=== PATIENT | female | born 1950 | race Caucasian/White ===

== ENCOUNTER 2018-05-05 21:27 | Emergency (ER) | payer MEDICARE, BC ==
--- OUTSIDE RECORDS SUMMARY | 2018-05-05 21:37 | XMS REPORT | Continuity of Care Document ---
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 Payers Type Date Identification Numbers Payment Provider Subscriber Policy Number: [id number] [employer] [place] PayID: [id number] [address] [place] [address] Effective: 2014 Policy Number: [employer] Nishant Marlow [id number] [facility] PayID: [id number] [address] [address] [place] [address] Onset: 2018 Policy Number: [id number] [employer] Marlow PayID: [id number] [address] [place] [address] Advance Directives Description No Information Available Problems Date Description Provider Status Onset: 09/14/2012 Anxiety state Douglas Comer MD Active Onset: 09/14/2012 Disorder of thyroid gland Douglas Comer MD Active Onset: 09/14/2012 Mixed hyperlipidemia Douglas Comer MD Active Onset: 09/14/2012 Vitamin D deficiency Douglas Comer MD Active Onset: 09/14/2012 Gastroesophageal reflux disease Douglas Comer MD Active Onset: 12/17/2012 Hypothyroidism Douglas Comer MD Active Onset: Cystocele Gabo Mcclain MD Active Onset: 03/25/2018 Derangement of meniscus of right knee Amanda Latham PA- C Active joint Family History Date Family Member(s) Problem(s) Comments Father Diabetes : (2007) Father due to Cerebrovascular Accident Father Heart Disease Father Atrial Fibrillation Father Cataracts Mother Hypertension Mother Cataracts Mother Anxiety Onset: (2012) Mother Aortic Aneursym Children 3 First Son Hypertension Second Son Unremarkable First Daughter Unremarkable Siblings 7 First Brother Sarcoidosis Second Brother Heart Murmur Second Brother Arthritis First Sister Diverticulitis First Sister Polyps sinus Second Sister Polyps colon Third Sister Gallstones Fourth Sister spinal meningitis Fifth Sister Hepatitis Paternal Grandfather due to mesenteric () thrombosis Paternal Grandfather Prostate Cancer Paternal Grandmother Congestive Heart Failure (CHF) Paternal Grandmother due to Congestive Heart () Failure Paternal Grandmother Hypertension Paternal Grandmother Cataracts Paternal Grandmother Gallstones Maternal Grandfather Tuberculosis Maternal Grandfather due to TB () Maternal Grandmother due to Cerebrovascular () Accident Maternal Grandmother Heart Disease Maternal Grandmother Cerebrovascular Accident (CVA) Social History Type Date Description Comments Sex Unknown Marital Status Legal Status: Lives With Spouse Diet Healthy, Well Balanced Sleep Reports normal sleep activity Sleep Typically sleeps 7 hours a night Smoke-Free Home is smoke-free Pets None 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 Employment Tobacco Use Start: Unknown End: Former Cigarette quit 05/2012 Unknown Smoker ETOH Use Rarely consumes wine Tobacco Use Start: Unknown End: Patient is a former 1/4 pack x 30+ years Unknown smoker Recreational Drug Use Denies Drug Use Smoking Status Reviewed: 04/18/18 Patient is a former 1/4 pack x 30+ years smoker Exercise Type/Frequency Exercises regularly yoga 1 x/week Smoke Alarms Yes Smoke Alarms Carbon Monoxide Detector: Yes Allergies, Adverse Reactions, Alerts Date Description Reaction Status Severity Comments 09/14/2012 Demerol Nausea and Vomiting Active 09/14/2012 Percocet Nausea and Vomiting Active 09/14/2012 Darvocet Nausea and Vomiting Active 09/14/2012 CT Contrast Medium Urticaria Active pt denies shellfish allergy Medications Medication Date Status Form Strength Qnty SIG Indications Ordering Provider Ibuprofen 12/20 Active Tablets 600mg 90tab Take 1 M25.562 s tablet, 3 o,Peter times a dayDimitri MD as needed for pain. Take with food T.E.D. 04/02 Active Misc 2unit bilateral, R60.0 Anti-Embolism s please Douglas burns Knee measure for MD Dimitri Length appropriate sizing Protonix 10/[address] 40mg 90tab 1 by mouth K21.9 s every day Douglas burns MD Vitamin D 07/01 Active Capsules 1000Unit 1 po qd Douglas burns MD Singulair 03/28 Active Tablets 10mg 90tab 1 tab by T78.49xA s mouth every Douglas burns night at MD Dimitri bedtime Levothyroxine Active Tablets 88mcg 90tab 1 by mouth E03.9 Sodium s every day Douglas burns MD Lipitor Active Tablets 10mg 90tab 1 by mouth E78.2 s every night Douglas burns at bedtime MD Dimitri Xanax Active Tablets 0.25mg 30tab 1 by mouth s every day Douglas burns and bulmaro Mosley MD needed anxiety Aspirin Ec Active Tablets DR 81mg OTC 1 po qd Nasonex Active Suspension 50mcg/Act 1unit 2 sp each s nostril Douglas burns every day MD Dimitri Pepcid ac Active Tablets 10mg prn GERD flare up Shingrix 02/02 Hx Suspension 50mcg .5ml give 0.5ml Rec sq once to Douglas burns - deidre given at MD Dimitri 04/18 pharmacy, 2nd dose repeat as indicated Bactrim DS 08/21 Hx Tablets 800-160mg 20tab 1 by mouth J01.80 s twice a day ,Ryan Mota x 10 liam Leal MD 08/29 Cefdinir 03/28 Hx Capsules 300mg 20cap 2 by mouth R05 s every day x Douglas burns - 10d MD Dimitri 04/07 Azithromycin 03/23 Hx Tablets 250mg 6tabs 2 by mouth day 1, then Douglas burns - 1 by mouth MD Dimitri 03/28 everyday 2-5 Cefdinir 07/10 Hx Capsules 300mg 20cap 2 by mouth J01.80 s every day x oDouglas MD 07/20 Cefdinir 03/14 Hx Capsules 300mg 20cap 2 by mouth s every day x o,Douglas Mosley MD 07/10 Azithromycin 03/12 Hx Tablets 500mg 5tabs 1 by mouth H66.91 Matty every day x Justin - 5 days MD Elvis 03/14 Tessalon Perles 03/12 Hx Capsules 100mg 15cap 1 by mouth Matty s three times Justin - a day MD Elvis 07/10 Augmentin 03/10 Hx Tablets 875-125mg 20tab one by mouth 682.2 Jose s twice a day oDouglas - x 10 days MD Dimitri 03/12 H66.91 Cefdinir 01/19/2016 - Hx Capsules 300mg 20caps 1 by mouth J01.00 Cresencio Hodgson 01/29/2016 twice a A, day x 10d with food Cipro 10/13/2015 - Hx Tablets 500mg 20tabs 1 by mouth R35.0 Jaki Sandra 10/23/2015 twice a seph MD Elvis day x 10 days Gentamicin 11/24/2014 - Hx Solution 0.3% 5ml 1 drop 372.00 Picciano,Ama Sulfate 06/05/2015 left eye fritz Mosley MD three times a day for 5 days 373.12 Cipro 11/24/2014 - Hx Tablets 500mg 10tabs 1 by mouth 599.0 Anupcolla, 04/02/2015 twice a day Justin Leal, x 5 days MD Hickman HFPeggy 09/21/2014 - Hx Aerosol 108(90B 1units 1-2 puffs Fiacco, 01/19/2016 ase) q4-6 as Cresencio Woods MD mcg/Act needed wheezing/sob Cefdinir 03/11/2014 - Hx Capsules 300mg 20caps 2 by mouth 461.8 Fiacco, 03/21/2014 every day x Cresencio Woods MD 10d Augmentin 01/01/2014 - Hx Tablets 875-125 20tabs one by mouth 682.2 Dimitri Sandra 01/11/2014 mg twice a day oseph MD Elvis x 10 days Prednisone 09/23/2013 - Hx Tablets 20mg 3tabs 1 take 1 tab Souleymane, 04/18/2018 13 hours Douglas Mosley MD prior to procedure, 1 tab 7 hours prior to procedure, and 1 tab 1 hour prior to procedure Tamiflu 07/07/2013 - Hx Capsules 75mg 10caps 1 po qd x 10 Fiacco, 07/17/2013 days Cresencio Woods MD Levofloxacin 03/24/2013 - Hx Tablets 250mg 10tabs 1 po qd x 10 466.0 Mincolla, 04/03/2013 days Justin Leal MD Augmentin 03/15/2013 - Hx Tablets 875-125 14tabs one po bid x 682.2 Fiacco, 2013 mg 7 days Cresencio Woods MD Gentamicin 10/29/2012 - Hx Solution 0.3% 5ml 1 gtt OS tid 372.00 Picciano,Mi Sulfate 11/03/2012 for 5 days chloé Mosley MD Cefdinir 09/12/2012 - Hx Capsules 300mg 20caps 2 po qd x Unknown 09/22/2012 10d Nexium - Hx Capsules 40mg 30caps 1 by mouth 530.81 Souleymane, 10/14/2014 DR every day Douglas Mosley MD Vitamin D3 Super - Hx Tablets 2000Uni 1 po qd Unknown Strength 07/01/2013 t Estradiol - Hx Tablets 0.5mg 30tabs 1/2 po qd Contente, 01/22/2014 MD Gabo Sulfacetamide - Hx Ointment 10% use qam as Unknown Sodium 09/21/2014 directed Metronidazole - Hx Gel 0.75% 45gm apply Unknown 09/21/2014 sparingly to face qhs Econazole - Hx Cream 1% apply daily Tangoren, Nitrate 10/23/2017 to face as I.A., indicated MD-not accepting new pt Hydrocortisone - Hx Cream 0.2% apply to Tangoren, Valerate 10/23/2017 face daily I.A., as MD-not prescribed accepting new pt Medications Administered in Office Medication Date Status Form Strength Qnty SIG Indications Ordering Provider Toradol, 60 MG Administered Injection Sarah Ritchie RNNP Rocepsuzanna 1GM Administered Injection Sarah Ritchie RNNP Immunizations CPT Code Status Date Vaccine Lot # [id number] Given 04/05/2018 Flu,High Dose For (Ages 65 and older) 79995 Given 05/04/2017 Flu,High Dose For (Ages 65 and older) [id number] 33548 Given 04/06/2016 Flu, Multi-Dose Vial W/Preservative (Age 3 Yrs And Older)Quad 0.5 82006 Given 04/02/2015 Adacel - Tdap [facility] [id number] 06/27 cc 09827 Given 04/02/2015 Adacel - Tdap [facility] [id number] 06/27 cc [id number] 93072 Given 04/02/2015 Flu,High Dose For (Ages 65 and older) 65934 Given 04/02/2015 Flu,High Dose For (Ages 65 and older) [id number] 34016 Given 05/01/2014 Pneumococcal Vaccine - Prevnar 13 [id number] 41811 Given 04/25/2014 Flu, Multi-Dose Vial W/Preservative (Age 3 Yrs And Older)Quad 0.5 77731 Given 03/28/2013 Flu Shot 3 Yrs And Above (Multi Dose Vial) [id number] 34518 Given 09/14/2012 Zostavax 18364 Given 09/14/2012 Pneumococcal 23 Vaccine Vital Signs Date Vital Result Comment 04/18/2018 9:10am BP Systolic 120 mmHg BP Diastolic 70 mmHg Heart Rate 80 /min Body Temperature 99.1 F Respiratory Rate 18 /min Weight 195.00 lb Weight 88.452 kg Height 65.25 inches 5'5.25" BMI (Body Mass Index) 32.2 kg/m2 03/19/2018 12:19pm BP Systolic 132 mmHg BP Diastolic 80 mmHg Heart Rate 84 /min Body Temperature 98.2 F Respiratory Rate 16 /min Weight 195.00 lb Weight 88.452 kg Height 65.25 inches 5'5.25" BMI (Body Mass Index) 32.2 kg/m2 02/02/2018 8:18am BP Systolic 126 mmHg BP Diastolic 74 mmHg Heart Rate 64 /min Body Temperature 98.6 F Respiratory Rate 16 /min Weight 197.00 lb Weight 89.359 kg Height 65.25 inches 5'5.25" BMI (Body Mass Index) 32.5 kg/m2 10/23/2017 11:05am BP Systolic 130 mmHg BP Diastolic 88 mmHg Heart Rate 66 /min Body Temperature 98.1 F Respiratory Rate 12 /min Weight 202.12 lb Weight 91.684 kg Height 65.25 inches 5'5.25" BMI (Body Mass Index) 33.4 kg/m2 08/21/2017 3:21pm BP Systolic 120 mmHg BP Diastolic 80 mmHg Heart Rate 70 /min Body Temperature 98.6 F Respiratory Rate 16 /min Weight 201.00 lb Weight 91.174 kg Height 65.25 inches 5'5.25" BMI (Body Mass Index) 33.2 kg/m2 05/04/2017 10:12am BP Systolic 120 mmHg BP Diastolic 80 mmHg Heart Rate 74 /min Body Temperature 98.5 F Respiratory Rate 20 /min Weight 195.00 lb Weight 88.452 kg Height 65.25 inches 5'5.25" BMI (Body Mass Index) 32.2 kg/m2 03/28/2017 9:15am BP Systolic 122 mmHg BP Diastolic 80 mmHg Heart Rate 68 /min Body Temperature 99.2 F Respiratory Rate 16 /min Weight 197.00 lb Weight 89.359 kg Height 65.25 inches 5'5.25" BMI (Body Mass Index) 32.5 kg/m2 03/23/2017 11:26am BP Systolic 120 mmHg BP Diastolic 82 mmHg Heart Rate 66 /min Body Temperature 99.1 F Respiratory Rate 12 /min Weight 193.50 lb Weight 87.772 kg Height 65.25 inches 5'5.25" BMI (Body Mass Index) 32.0 kg/m2 12/20/2016 1:50pm BP Systolic 126 mmHg BP Diastolic 80 mmHg Heart Rate 76 /min Body Temperature 98.3 F Weight 198.00 lb Weight 89.813 kg Height 65.25 inches 5'5.25" BMI (Body Mass Index) 32.7 kg/m2 11/04/2016 8:35am BP Systolic 130 mmHg BP Diastolic 78 mmHg Heart Rate 74 /min Body Temperature 97.8 F Respiratory Rate 20 /min Weight 194.00 lb Weight 87.998 kg Height 65.25 inches 5'5.25" BMI (Body Mass Index) 32.0 kg/m2 07/25/2016 8:18am BP Systolic 130 mmHg BP Diastolic 80 mmHg Heart Rate 72 /min Body Temperature 98.4 F Respiratory Rate 16 /min Weight 192.00 lb Weight 87.091 kg Height 65.25 inches 5'5.25" BMI (Body Mass Index) 31.7 kg/m2 07/10/2016 12:46pm BP Systolic 128 mmHg BP Diastolic 78 mmHg Heart Rate 80 /min Body Temperature 98.9 F Respiratory Rate 12 /min Weight 189.00 lb Weight 85.730 kg Height 65.25 inches 5'5.25" BMI (Body Mass Index) 31.2 kg/m2 03/14/2016 9:38am BP Systolic 112 mmHg BP Diastolic 70 mmHg Heart Rate 76 /min Body Temperature 98.2 F Respiratory Rate 16 /min Weight 187.00 lb Weight 84.823 kg Height 65.25 inches 5'5.25" BMI (Body Mass Index) 30.9 kg/m2 03/10/2016 3:08pm BP Systolic 126 mmHg BP Diastolic 84 mmHg Heart Rate 68 /min Body Temperature 98.1 F Respiratory Rate 12 /min Weight 191.00 lb Weight 86.638 kg Height 65.25 inches 5'5.25" BMI (Body Mass Index) 31.5 kg/m2 02/15/2016 11:18am BP Systolic 138 mmHg BP Diastolic 80 mmHg BP Systolic Recheck 118 mmHg BP Diastolic Recheck 78 mmHg Heart Rate 74 /min Body Temperature 98.1 F Respiratory Rate 20 /min Weight 193.00 lb Weight 87.545 kg Height 65.25 inches 5'5.25" BMI (Body Mass Index) 31.9 kg/m2 01/19/2016 1:08pm BP Systolic 122 mmHg BP Diastolic 80 mmHg Heart Rate 68 /min Body Temperature 98.9 F Respiratory Rate 16 /min Weight 193.00 lb Weight 87.545 kg Height 65.25 inches 5'5.25" BMI (Body Mass Index) 31.9 kg/m2 10/13/2015 10:58am BP Systolic 120 mmHg BP Diastolic 78 mmHg Heart Rate 80 /min Body Temperature 98.2 F Respiratory Rate 18 /min Weight 198.00 lb Weight 89.813 kg Height 65.25 inches 5'5.25" BMI (Body Mass Index) 32.7 kg/m2 10/01/2015 10:48am BP Systolic 128 mmHg BP Diastolic 82 mmHg Heart Rate 68 /min Body Temperature 98.3 F Respiratory Rate 14 /min Weight 195.00 lb Weight 88.452 kg Height 65.25 inches 5'5.25" BMI (Body Mass Index) 32.2 kg/m2 06/05/2015 9:04am BP Systolic 114 mmHg BP Diastolic 68 mmHg Heart Rate 76 /min Body Temperature 98.0 F Respiratory Rate 12 /min Weight 193.00 lb Weight 87.545 kg Height 65.25 inches 5'5.25" BMI (Body Mass Index) 31.9 kg/m2 04/02/2015 9:33am BP Systolic 122 mmHg BP Diastolic 78 mmHg Heart Rate 64 /min Respiratory Rate 14 /min Weight 193.00 lb Weight 87.545 kg Height 65.25 inches 5'5.25" BMI (Body Mass Index) 31.9 kg/m2 11/24/2014 9:04pm BP Systolic 118 mmHg BP Diastolic 76 mmHg Heart Rate 72 /min Body Temperature 98.2 F Respiratory Rate 16 /min Weight 191.00 lb Weight 86.638 kg Height 65.25 inches 5'5.25" BMI (Body Mass Index) 31.5 kg/m2 11/06/2014 7:26am BP Systolic 122 mmHg BP Diastolic 72 mmHg Heart Rate 80 /min Body Temperature 98.0 F Weight 191.00 lb Weight 86.638 kg Height 65.25 inches 5'5.25" BMI (Body Mass Index) 31.5 kg/m2 09/30/2014 2:16pm BP Systolic 120 mmHg BP Diastolic 78 mmHg Heart Rate 80 /min Body Temperature 98.5 F Respiratory Rate 12 /min Weight 187.00 lb Weight 84.823 kg Height 65.25 inches 5'5.25" BMI (Body Mass Index) 30.9 kg/m2 09/21/2014 11:39am BP Systolic 120 mmHg BP Diastolic 70 mmHg Heart Rate 75 /min Body Temperature 97.8 F Respiratory Rate 16 /min Weight 187.00 lb Weight 84.823 kg Height 65.25 inches 5'5.25" BMI (Body Mass Index) 30.9 kg/m2 05/01/2014 8:03am BP Systolic 90 mmHg BP Diastolic 70 mmHg Heart Rate 64 /min Body Temperature 98.5 F Respiratory Rate 14 /min Weight 184.00 lb Weight 83.462 kg Height 65.25 inches 5'5.25" BMI (Body Mass Index) 30.4 kg/m2 03/11/2014 3:47pm BP Systolic 122 mmHg BP Diastolic 70 mmHg Heart Rate 72 /min Body Temperature 98.5 F Respiratory Rate 16 /min Weight 182.00 lb Weight 82.555 kg Height 65.25 inches 5'5.25" BMI (Body Mass Index) 30.1 kg/m2 01/22/2014 2:49pm BP Systolic 120 mmHg BP Diastolic 82 mmHg Heart Rate 68 /min Body Temperature 98.0 F Respiratory Rate 12 /min Weight 181.00 lb Weight 82.102 kg Height 65.25 inches 5'5.25" BMI (Body Mass Index) 29.9 kg/m2 01/01/2014 7:08pm BP Systolic 120 mmHg BP Diastolic 66 mmHg Heart Rate 72 /min Body Temperature 98.0 F Respiratory Rate 14 /min Weight 183.00 lb Weight 83.009 kg Height 65.25 inches 5'5.25" BMI (Body Mass Index) 30.2 kg/m2 10/03/2013 7:47am BP Systolic 120 mmHg BP Diastolic 80 mmHg Heart Rate 76 /min Body Temperature 98.0 F Respiratory Rate 14 /min Weight 196.00 lb Weight 88.906 kg Height 65.25 inches 5'5.25" BMI (Body Mass Index) 32.4 kg/m2 09/23/2013 4:13pm BP Systolic 112 mmHg BP Diastolic 80 mmHg Heart Rate 64 /min Body Temperature 98.5 F Respiratory Rate 14 /min Weight 198.00 lb Weight 89.813 kg Height 65.25 inches 5'5.25" BMI (Body Mass Index) 32.7 kg/m2 07/01/2013 8:13am BP Systolic 126 mmHg BP Diastolic 84 mmHg Heart Rate 72 /min Body Temperature 98.2 F Respiratory Rate 16 /min Weight 194.00 lb Weight 87.998 kg Height 65.25 inches 5'5.25" BMI (Body Mass Index) 32.0 kg/m2 03/28/2013 9:23am BP Systolic 112 mmHg BP Diastolic 74 mmHg Heart Rate 68 /min Body Temperature 98.4 F Respiratory Rate 16 /min Weight 183.00 lb Weight 83.009 kg Height 65.25 inches 5'5.25" BMI (Body Mass Index) 30.2 kg/m2 03/24/2013 11:54am BP Systolic 102 mmHg BP Diastolic 68 mmHg Heart Rate 84 /min Body Temperature 98.1 F Respiratory Rate 16 /min Weight 183.00 lb Weight 83.009 kg Height 65.25 inches 5'5.25" BMI (Body Mass Index) 30.2 kg/m2 03/16/2013 1:18pm BP Systolic 116 mmHg BP Diastolic 76 mmHg Heart Rate 62 /min Body Temperature 98.2 F Respiratory Rate 14 /min Weight 186.00 lb Weight 84.370 kg Height 65.25 inches 5'5.25" BMI (Body Mass Index) 30.7 kg/m2 03/15/2013 4:14pm BP Systolic 120 mmHg BP Diastolic 80 mmHg Body Temperature 99.1 F Weight 188.00 lb Weight 85.277 kg Height 65.25 inches 5'5.25" BMI (Body Mass Index) 31.0 kg/m2 12/17/2012 8:19am BP Systolic 118 mmHg BP Diastolic 78 mmHg Heart Rate 70 /min Body Temperature 98.3 F Respiratory Rate 12 /min Weight 186.00 lb Weight 84.370 kg Height 65.25 inches 5'5.25" BMI (Body Mass Index) 30.7 kg/m2 11/07/2012 10:53am BP Systolic 124 mmHg BP Diastolic 82 mmHg Heart Rate 64 /min Body Temperature 98.5 F Respiratory Rate 12 /min Weight 188.00 lb Weight 85.277 kg Height 65.25 inches 5'5.25" BMI (Body Mass Index) 31.0 kg/m2 10/29/2012 4:11pm BP Systolic 110 mmHg BP Diastolic 64 mmHg Heart Rate 82 /min Body Temperature 98.3 F Respiratory Rate 14 /min Weight 180.00 lb Weight 81.648 kg Height 65.25 inches 5'5.25" BMI (Body Mass Index) 29.7 kg/m2 09/14/2012 10:21am BP Systolic 142 mmHg BP Diastolic 88 mmHg Heart Rate 68 /min Body Temperature 98.5 F Respiratory Rate 14 /min Weight 187.00 lb Weight 84.823 kg Height 65.25 inches 5'5.25" BMI (Body Mass Index) 30.9 kg/m2 Results Test Date Facility Test Result H/L Range Note CBC/Automated 02/02/2018 [facility] WBC 3.73 k/uL Low 4.60-10.20 1 Differential Yogi 1.93 Low 2.00-7.50 %N 51.9 % 37.0-80.0 Lym 1.33 K/UL 1.20-4.80 %L 35.6 % 10.0-50.0 Sac 0.295 0.000-0.900 %M 7.91 % 0.00-12.00 Eos 0.124 0.000-0.700 %E 3.32 % 0.00-7.00 Baso 0.050 0.000-0.200 %B 1.34 % 0.00-4.00 RBC 4.64 m/uL 4.04-6.13 Hemoglobin 13.7 g/dL 12.2-18.1 Hematocrit 41.3 % 37.7-47.0 MCV 89.1 fl 80.0-97.0 MCH 29.5 pg 27.0-31.2 MCHC 33.1 g/dL 31.8-35.4 RDW 12.3 % 11.6-14.8 PLT 313 K/uL 142-424 MPV 7.1 fL 0.0-99.9 Comprehensive 02/02/2018 [facility] Glucose 101.00 mg/dL 70.00- 110.00 Metabolic Panel Urea Nitrogen 18 mg/dL 8-21 CreaC 1.0 mg/dL 0.6-1.1 GFR 55.87 mL/min 2 Na-C 139 mmol/L 136-145 K-C 5.0 mmol/L 3.5-5.1 Cl-C 105 mmol/L 98-107 Total Protein 6.8 g/dL 6.4-8.3 Alb P 3.90 g/dL 3.30-5.00 Alanine Aminotransferase 21 U/L 0-55 Aspartate Aminotransferase 16 U/L 5-34 Alkaline Phosphatase 85 U/L 40-150 Carbon Dioxide 26.00 mmol/L 22.00-31.00 BUN/CR 17.31 10.00-20.00 A/G 2.34 1.46-2.46 Osmo 290.04 275.00-295.00 CaC 9.80 mg/dL 8.90-10.40 Total Bilirubin 0.6 mg/dL 0.2-1.2 Glob 2 2.90 2.30-4.20 Lipid Panel(New) 02/02/2018 [facility] Cholesterol 167 mg/dL 112- 200 3 Triglyceride 120 mg/dL 1-200 4 HDL 51 mg/dL 30-85 5 Chol/HDL 3.27 Low 4.00-6.70 NHDL 116.00 mg/dL High 0.00-100.00 6 LDL-C 92.00 mg/dL 20.00-130.00 7 Laboratory test finding 10/23/2017 [facility] TSH 0.727 uIU/mL 0.350-4.940 CBC/Automated 10/23/2017 [facility] WBC 3.63 k/uL Low 4.60-10.20 Differential Yogi 1.84 Low 2.00-7.50 %N 50.6 % 37.0-80.0 Lym 1.36 K/UL 1.20-4.80 %L 37.5 % 10.0-50.0 Sac 0.290 0.000-0.900 %M 7.99 % 0.00-12.00 Eos 0.092 0.000-0.700 %E 2.53 % 0.00-7.00 Baso 0.050 0.000-0.200 %B 1.39 % 0.00-4.00 RBC 4.63 m/uL 4.04-6.13 Hemoglobin 13.4 g/dL 12.2-18.1 Hematocrit 41.3 % 37.7-47.0 MCV 89.3 fl 80.0-97.0 MCH 29.0 pg 27.0-31.2 MCHC 32.5 g/dL 31.8-35.4 RDW 11.6 % 11.6-14.8 PLT 301 K/uL 142-424 MPV 6.4 fL 0.0-99.9 Comprehensive 10/23/2017 [facility] Glucose 91.00 mg/dL 70.00- 110.00 Metabolic Panel Urea Nitrogen 18 mg/dL 8-21 CreaC 1.0 mg/dL 0.6-1.1 GFR 57.83 mL/min 8 Na-C 139 mmol/L 136-145 K-C 4.6 mmol/L 3.5-5.1 Cl-C 105 mmol/L 98-107 Total Protein 6.9 g/dL 6.4-8.3 Alb P 3.80 g/dL 3.30-5.00 Alanine Aminotransferase 22 U/L 0-55 Aspartate Aminotransferase 18 U/L 5-34 Alkaline Phosphatase 82 U/L 40-150 Carbon Dioxide 26.00 mmol/L 22.00-31.00 BUN/CR 17.82 10.00-20.00 A/G 2.23 1.46-2.46 Osmo 289.48 275.00-295.00 CaC 9.40 mg/dL 8.90-10.40 Total Bilirubin 0.6 mg/dL 0.2-1.2 Glob 2 3.10 2.30-4.20 Lipid Panel(New) 10/23/2017 [facility] Cholesterol 172 mg/dL 112- 200 9 Triglyceride 111 mg/dL 1-200 10 HDL 53 mg/dL 30-85 11 Chol/HDL 3.25 Low 4.00-6.70 NHDL 119.00 mg/dL High 0.00-100.00 12 LDL-C 96.80 mg/dL 20.00-130.00 13 CBC/Automated Differential 05/04/2017 [facility] WBC 3.93 k/uL Low 4.60-10.20 Yogi 2.15 2.00-7.50 %N 54.7 % 37.0-80.0 Lym 1.41 K/UL 1.20-4.80 %L 35.8 % 10.0-50.0 Sac 0.236 0.000-0.900 %M 6.02 % 0.00-12.00 Eos 0.089 0.000-0.700 %E 2.27 % 0.00-7.00 Baso 0.046 0.000-0.200 %B 1.18 % 0.00-4.00 RBC 4.79 m/uL 4.04-6.13 Hemoglobin 14.7 g/dL 12.2-18.1 Hematocrit 45.0 % 37.7-47.0 MCV 93.8 fl 80.0-97.0 MCH 30.8 pg 27.0-31.2 MCHC 32.8 g/dL 31.8-35.4 RDW 12.1 % 11.6-14.8 PLT 319 K/uL 142-424 MPV 6.5 fL 0.0-99.9 Comprehensive 05/04/2017 [facility] Glucose 95.00 mg/dL 70.00- 110.00 Metabolic Panel Urea Nitrogen 17 mg/dL 8-21 CreaC 1.0 mg/dL 0.6-1.1 GFR 61.41 mL/min 14 Na-C 139 mmol/L 136-145 K-C 4.8 mmol/L 3.5-5.1 Cl-C 103 mmol/L 98-107 Total Protein 7.2 g/dL 6.4-8.3 Alb P 3.70 g/dL 3.30-5.00 Alanine Aminotransferase 21 U/L 0-55 Aspartate Aminotransferase 19 U/L 5-34 Alkaline Phosphatase 99 U/L 40-150 Carbon Dioxide 29.00 mmol/L 22.00-31.00 BUN/CR 17.71 10.00-20.00 A/G 2.06 1.46-2.46 Osmo 289.35 275.00-295.00 CaC 9.80 mg/dL 8.90-10.40 Total Bilirubin 0.5 mg/dL 0.2-1.2 Glob 2 3.50 2.30-4.20 Lipid Panel(New) 05/04/2017 [facility] Cholesterol 182 mg/dL 112- 200 15 Triglyceride 137 mg/dL 1-200 16 HDL 55 mg/dL 30-85 17 Chol/HDL 3.31 Low 4.00-6.70 NHDL 127.00 mg/dL High 0.00-100.00 18 LDL-C 99.60 mg/dL 20.00-130.00 19 Laboratory test finding 05/04/2017 [facility] TSH 1.282 uIU/mL 0.350-4.940 VitD-hydroxy 49 ng/ml 30-100 Order 03/23/2017 [facility] Oximetry [address] [place], [place] [id number] [phone] Comprehensive 11/04/2016 [facility] Glucose 93.00 70.00-1 20 Metabolic Panel mg/dL 10.00 Urea Nitrogen 17 mg/dL 8-21 CreaC 1.0 mg/dL 0.6-1.1 GFR 56.70 mL/min 21 Na-C 138 mmol/L 136-145 K-C 4.7 mmol/L 3.5-5.1 Cl-C 104 mmol/L 98-107 Total Protein 7.2 g/dL 6.4-8.3 Alb P 3.80 g/dL 3.30-5.00 Alanine Aminotransferase 32 U/L 0-55 Aspartate Aminotransferase 26 U/L 5-34 Alkaline Phosphatase 81 U/L 40-150 Carbon Dioxide 26.00 mmol/L 22.00-31.00 BUN/CR 16.50 10.00-20.00 A/G 2.12 1.46-2.46 Osmo 287.24 275.00-295.00 CaC 9.60 mg/dL 8.90-10.40 Total Bilirubin 0.5 mg/dL 0.2-1.2 Glob 2 3.40 2.30-4.20 Lipid Panel(New) 11/04/2016 [facility] Cholesterol 188 mg/dL 112- 200 22 Triglyceride 128 mg/dL 1-200 23 HDL 57 mg/dL 30-85 24 Chol/HDL 3.30 Low 4.00-6.70 NHDL 131.00 mg/dL High 0.00-100.00 25 LDL-C 105.40 mg/dL 20.00-130.00 26 CBC/Automated Differential 11/04/2016 [facility] WBC 4.02 k/uL Low 4.60-10.20 Yogi 2.06 2.00-7.50 %N 51.4 % 37.0-80.0 Lym 1.45 K/UL 1.20-4.80 %L 36.2 % 10.0-50.0 Sac 0.286 0.000-0.900 %M 7.12 % 0.00-12.00 Eos 0.147 0.000-0.700 %E 3.66 % 0.00-7.00 Baso 0.065 0.000-0.200 %B 1.61 % 0.00-4.00 RBC 4.81 m/uL 4.04-6.13 Hemoglobin 14.4 g/dL 12.2-18.1 Hematocrit 43.4 % 37.7-47.0 MCV 90.1 fl 80.0-97.0 MCH 29.9 pg 27.0-31.2 MCHC 33.2 g/dL 31.8-35.4 RDW 12.9 % 11.6-14.8 PLT 292 K/uL 142-424 MPV 7.1 fL 0.0-99.9 Laboratory test 11/04/2016 [facility] TSH 1.354 uIU/mL 0.350-4.940 finding Laboratory test 07/25/2016 [facility] Hepatitis C NEGATIVE (Neg) 27, 28 finding Antibody Comprehensive 07/25/2016 [facility] Glucose 91.00 mg/dL 70.00- 110.00 Metabolic Panel Urea Nitrogen 18 mg/dL 8-21 CreaC 1.1 mg/dL 0.6-1.1 GFR 55.50 mL/min 29 Na-C 139 mmol/L 136-145 K-C 4.8 mmol/L 3.5-5.1 Cl-C 104 mmol/L 98-107 Total Protein 7.3 g/dL 6.4-8.3 Alb P 3.90 g/dL 3.30-5.00 Alanine Aminotransferase 27 U/L 0-55 Aspartate Aminotransferase 20 U/L 5-34 Alkaline Phosphatase 96 U/L 40-150 Carbon Dioxide 27.00 mmol/L 22.00-31.00 BUN/CR 17.14 10.00-20.00 A/G 2.15 1.46-2.46 Osmo 289.48 275.00-295.00 CaC 9.30 mg/dL 8.90-10.40 Total Bilirubin 0.6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
[2018-05-05] MEDS ORDERED: Pantoprazole IV* 40 MG IV ONE (21:41)
[2018-05-05] MEDS ORDERED: Lidocaine 2% VISCOUS* 15 ML UDC PO ONE (21:41)
[2018-05-05] MEDS ORDERED: Al Hydrox/Mg Hydrox/Simet LIQ* 30 ML UDC PO ONE (21:41)
--- NOTE | 2018-05-05 21:51 | ED ---
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 She started to eat and had sudden onset of chest pain that felt like heaviness and diaphoresis. Presently the pain is at 4/10. The pt denies nausea or a hx of HTN. The pt takes medication for her thyroid, GERD, and HLD. Pt has similar hx with episodes like this over 10 years ago, and had a cardiac stress test in the early that was normal. - History of Current Complaint Chief Complaint: EDChestPainROMI Time Seen by Provider: 05/05/18 21:31 Hx Obtained From: Patient Onset/Duration: Started Hours Ago, Still Present Timing: Constant Initial Severity: Moderate Current Severity: Mild Pain Intensity: 4 Pain Scale Used: 0-10 Numeric Chest Pain Location: Mid Sternal Chest Pain Radiates: No Character: Heaviness Aggravating Factor(s): Nothing Alleviating Factor(s): Nothing Associated Signs and Symptoms: Positive: Chest Pain, Diaphoresis. Negative: Nausea Related History: Similar Episode/Dx as: - 10 yrs ago chest pain - Allergy/Home Medications Allergies/Adverse Reactions: Allergies Allergy/AdvReac Type Severity Reaction Status Date / Time ivp dye Allergy Hives Uncoded 05/05/18 21:38 PMH/Surg Hx/FS Hx/Imm Hx Previously Healthy: No Endocrine/Hematology History: Reports: Hx Thyroid Disease Cardiovascular History: Reports: Hx Hypercholesterolemia Denies: Hx Hypertension GI History: Reports: Hx Gastroesophageal Reflux Disease Infectious Disease History: No Infectious Disease History: Denies: Traveled Outside the [place] in Last 30 Days - Family History Known Family History: Negative: Diabetes - Social History Lives: With Family Hx Substance Use: No Review of Systems Positive: Skin Diaphoresis. Negative: Fever Positive: Chest Pain Negative: Nausea All Other Systems Reviewed And Are Negative: Yes Physical Exam - Summary Physical Exam Summary: VITAL SIGNS: Reviewed. GENERAL: Patient is a well-developed and nourished female who is lying comfortable in the stretcher. Patient is not in any acute respiratory distress but looks somewhat anxious. HEAD AND FACE: No signs of trauma. No ecchymosis, hematomas or skull depressions. No sinus tenderness. EYES: PERRLA, EOMI x 2, No injected conjunctiva, no nystagmus. EARS: Hearing grossly intact. Ear canals and tympanic membranes are within normal limits. MOUTH: Oropharynx within normal limits. NECK: Supple, trachea is midline, no adenopathy, no JVD, no carotid bruit, no c- spine tenderness, neck with full ROM. CHEST: Symmetric, no tenderness at palpation LUNGS: Clear to auscultation bilaterally. No wheezing or crackles. CVS: Mild tachycardia, S1 and S2 present, no murmurs or gallops appreciated. ABDOMEN: Soft, non-tender. No signs of distention. No rebound no guarding, and no masses palpated. Bowel sounds are normal. EXTREMITIES: FROM in all major joints, no edema, no cyanosis or clubbing. NEURO: Alert and oriented x 3. No acute neurological deficits. Speech is normal and follows commands. SKIN: Dry and warm Triage Information Reviewed: Yes Vital Signs On Initial Exam: Initial Vitals Temp Pulse Resp BP Pulse Ox 98.4 F 115 15 177/103 96 05/05/18 21:31 05/05/18 21:31 05/05/18 21:31 05/05/18 21:31 05/05/18 21:31 Vital Signs Reviewed: Yes Diagnostics - Vital Signs Vital Signs Temp Pulse Resp BP Pulse Ox 05/05/18 21:31 98.4 F 115 15 177/103 96 - Laboratory Result Diagrams: 05/05/18 21:47 05/05/18 21:47 Lab Statement: Any lab studies that have been ordered have been reviewed, and results considered in the medical decision making process. - Radiology Chest XRay Radiology Interpretation Completed By: ED Physician Summary of Radiographic Findings: No acute process. Official radiology report pending. 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 The pain is currently 4/10 and the pt has a hx of episodes similar to this, but over 10 yrs ago. The pt has had a cardiac stress test 10+ yrs ago which was normal. 0128 - The pt feels better and is pain free. She has a heart score of 1, two negative troponins, 2 normal EKGs. Pt will be wa'ed home to have a stress test as an outpatient. - Diagnoses Provider Diagnoses: Chest pain Discharge - Sign-Out/Discharge Documenting (check all that apply): Patient Departure - Discharge Plan Condition: Stable Disposition: HOME Referrals: Souleymane SANTO,Douglas Sadler [Primary Care Provider] - Additional Instructions: PLEASE SCHEDULE A CARDIAC STRESS TEST FOR THIS COMING WEEK. PLEASE RETURN TO THE EMERGENCY DEPARTMENT FOR ANY NEW OR WORSENING SYMPTOMS. FOLLOW UP WITH YOUR PRIMARY CARE PROVIDER IN 1-2 DAYS. - Billing Disposition and Condition Condition: STABLE Disposition: Home - Attestation Statements Document Initiated by Scribe: Yes Documenting Scribe: Michelle Scott Provider For Whom Arturo is Documenting (Include Credential): Jolene Steele MD. Scribe Attestation: Michelle Bar, scribed for Jolene Steele MD. on 05/06/18 at 0609. Scribe Documentation Reviewed: Yes Provider Attestation: The documentation as recorded by the scribeMichelle accurately reflects the service I personally performed and the decisions made by , Jolene Steele MD.
[2018-05-05 22:04] LABS: ABS Basophils 0.1 10^3/ul (0-0.2); ABS Eosinophils 0.1 10^3/ul (0-0.6); ABS Lymphocytes 1.5 10^3/ul (1.0-4.8); ABS Monocytes 0.5 10^3/ul (0-0.8); ABS Neutrophils 3.2 10^3/ul (1.5-7.7); ABS Nucleated RBC 0 10^3/ul; Eosinophil % 2.5 % (0-6); Hematocrit 39 % (35-47); Hemoglobin 13.5 g/dl (12.0-16.0); Lymphocyte % 27.6 % (25-47); Mean Corpuscular HGB Conc 34 g/dl (31-36); Mean Corpuscular Hemoglobin 31 pg (27-31); Mean Corpuscular Volume 90 fL (80-97); Mean Platelet Volume 7.4 fL (7.4-10.4); Nucleated Red Blood Cells % 0.2; Platelet Count 314 10^3/ul (150-450); Red Blood Count 4.36 10^6/ul (4.00-5.40); Red Cell Distribution Width 14 % (10.5-15); White Blood Count 5.3 10^3/ul (3.5-10.8)
[2018-05-05 22:13] LABS: INR 0.94 (0.77-1.02)
[2018-05-05] MEDS ORDERED: ALPRAZolam TAB* 0.5 MG PO ONE (22:34)
[2018-05-06 01:42] VITALS: BP 122/69
== END 2018-05-06 01:43 | disposition home or self-care (01) ==
LOC: ED 21:27
DX: R07.89 Other chest pain (principal); R61 Generalized hyperhidrosis; R00.0 Tachycardia, unspecified; Z91.041 Radiographic dye allergy status
CPT/HCPCS: 36415; 71045; 80053; 82150; 83605; 83690; 83735; 84443; 84484; 85025; 85610; 85730; 93005; 96374; 99284; A9270-GY